=== PATIENT | male | born 1930 | race Two or more races ===

== ENCOUNTER 2017-02-23 11:40 | Emergency (ER) | payer MEDICARE, MEDICAID, OTHER ==
[~2017-02-23] VITALS: Ht 172.7 cm; Wt 111.1 kg
[~2017-02-23 11:40] MED LIST: ASPI-378 PO; CARV6.2551 PO; LEVO25TA6 PO; LISI2.5T47 PO; METF-370 PO
[2017-02-23 12:36] LABS: Basophils # (auto) 0 uL; Basophils % (auto) 0.5 % (0.0-2.0); CONDITION Y; Eosinophils # (auto) 0.3 uL; Eosinophils % (auto) 3.1 % (0.0-7.0); Hematocrit 43.6 % (41.0-53.0); Hemoglobin 15.1 g/dL (13.5-17.5); Lymphocytes # (auto) 2.5 uL; Lymphocytes % (auto) 30.5 % (10.0-50.0); Mean Corpuscular Hemoglobin 30.6 pg (28.0-32.0); Mean Corpuscular Hgb Conc. 34.6 g/dL (32.0-36.0); Mean Corpuscular Volume 88.3 fL (80.0-100.0); Mean Platelet Volume 8.3 fL (7.4-10.4); Monocytes # (auto) 0.7 uL; Monocytes % (auto) 8.6 % (0.0-12.0); Neutrophils # (auto) 4.8 uL; Neutrophils % (auto) 57.3 % (37.0-80.0); Platelet Count (auto) 259 10^3/uL (140-450); Red Cell Distribution Width 13.2 % (11.6-16.0); White Blood Cell 8.3 10^3/uL (4.4-10.8)
[2017-02-23 13:05] LABS: INR 1.1 (0.9-1.15); Partial Thromboplastin Time 26.6 sec (22.64-33.71)
[2017-02-23 13:09] LABS: Albumin 3.8 g/dL (3.4-5.0); BUN/Creatinine Ratio 19.5; Bilirubin, Total 0.5 mg/dL (0.2-1.0); Calcium 9.1 mg/dL (8.5-10.1); Potassium 4.6 mmol/L (3.5-5.1); Total Protein 7.5 g/dL (6.4-8.2)
[2017-02-23] MEDS ORDERED: PROMETHAZINE HCL 25 MG/ML 1ML IV ONE (16:00)
[2017-02-23] MEDS ORDERED: KETOROLAC TROMETH 30 MG/ML 1ML VIAL IV ONE (16:00)
[2017-02-23] MEDS ORDERED: DEXAMETHASONE SOD PHOS 4 MG/1ML SDV INJ IV ONE (17:30)
[2017-02-23 21:00] VITALS: BP 120/55
== END 2017-02-23 21:27 | disposition home or self-care (01) ==
LOC: ER 11:40
DX: M54.9 Dorsalgia, unspecified (principal); M21.42 Flat foot [pes planus] (acquired), left foot; M21.41 Flat foot [pes planus] (acquired), right foot; E66.9 Obesity, unspecified; Z68.37 Body mass index [BMI] 37.0-37.9, adult; Z86.73 Personal history of transient ischemic attack (TIA), and cerebral infarction without residual deficits; J44.9 Chronic obstructive pulmonary disease, unspecified; I25.10 Atherosclerotic heart disease of native coronary artery without angina pectoris; I10 Essential (primary) hypertension; E11.9 Type 2 diabetes mellitus without complications; G89.29 Other chronic pain; N40.0 Benign prostatic hyperplasia without lower urinary tract symptoms; Z79.82 Long term (current) use of aspirin
CPT/HCPCS: 36415; 72131; 80053; 81002; 82962; 83735; 84443; 85025; 85379; 85610; 85730; 93970; 96374; 96375; 99285; J1100; J1885; J2550

== ENCOUNTER 2021-09-13 10:50 | Inpatient (IN) | payer MEDICARE, MEDICAID ==
[~2021-09-13] VITALS: Ht 175.3 cm; Wt 114.9 kg
[2021-09-13 12:28] LABS: Basophils # (auto) 0 10 ^3/uL (0-0.2); Basophils % (auto) 0.3 % (0.0-2.0); Eosinophils # (auto) 0 10 ^3/uL (0-0.8); Eosinophils % (auto) 0.2 % (0.0-7.0); Hematocrit 41.7 % (41.0-53.0); Hemoglobin 14.3 g/dL (13.5-17.5); Lymphocytes # (auto) 1.6 10 ^3/uL (0.4-5.4); Lymphocytes % (auto) 16.7 % (10.0-50.0); Mean Corpuscular Hemoglobin 30.3 pg (28.0-32.0); Mean Corpuscular Hgb Conc. 34.3 g/dL (32.0-36.0); Mean Corpuscular Volume 88.4 fL (80.0-100.0); Monocytes # (auto) 1.1 10 ^3/uL (0-1.3); Monocytes % (auto) 11.1 % (0.0-12.0); Neutrophils # (auto) 6.8 10 ^3/uL (1.6-8.6); Neutrophils % (auto) 71.7 % (37.0-80.0); Nucleated Red Blood Cells % 0.1 %; Red Blood Cells 4.72 10^6/uL (4.5-5.90); Red Cell Distribution Width 13.5 % (11.8-14.3); White Blood Cell 9.5 10^3/uL (4.4-10.8)
[2021-09-13] MEDS ORDERED: ONDANSETRON HCL 4 MG/2 ML VIAL IV ONE (12:45)
[2021-09-13 12:49] LABS: Potassium 4.4 mmol/L (3.5-5.1)
[2021-09-13 12:55] LABS: Albumin 3.4 g/dL (3.4-5.0); BUN/Creatinine Ratio 20.7; Bilirubin, Total 0.9 mg/dL (0.2-1.0); Calcium 8.5 mg/dL (8.5-10.1); Total Protein 6.9 g/dL (6.4-8.2)
[2021-09-13] MEDS ORDERED: GLIP5TAB12 PO (13:31)
[2021-09-13] MEDS ORDERED: ATOR10TA52 PO (13:31)
[2021-09-13] MEDS ORDERED: AML5T PO (13:31)
[2021-09-13] MEDS ORDERED: ALFU10TA33 PO (13:31)
[2021-09-13] MEDS ORDERED: FUROSEMIDE 40 MG/4 ML VIAL IV ONE (15:15)
[2021-09-13] MEDS ORDERED: SPIRONOLACTONE 25 MG TAB PO ONE (15:15)
[2021-09-13 15:35] LABS: Urine Bacteria FEW /hpf (None Seen); Urine Blood Negative /uL (Negative); Urine Mucus FEW (None Seen); Urine Specific Gravity 1.026 (1.001-1.035); Urine WBC 3 /hpf (0 - 3)
[2021-09-13] MEDS ORDERED: MORPHINE SULFATE INJECTION 2 MG/ML SYRG IV PRN ×2 (17:30→18:45)
[2021-09-13] MEDS ORDERED: NITROGLYCERIN 0.4 MG SL TAB SL PRN (17:30)
[2021-09-13] MEDS ORDERED: FOLIC ACID 1 MG TAB PO ONE (18:45)
[2021-09-13] MEDS ORDERED: methylPREDNISolone SOD SUCC 125 MG/2 ML VL IV ONE (18:45)
[2021-09-13] MEDS ORDERED: ALBUTEROL SULF 2.5 MG/0.5ML(0.5%) NEB SOLN NEB PRN (18:45)
[2021-09-13] MEDS ORDERED: MONTELUKAST SODIUM 10 MG TAB PO ONE (18:45)
[2021-09-13] MEDS ORDERED: LORazepam 0.5 MG TAB PO PRN (18:45)
[2021-09-13] MEDS ORDERED: ACETAMINOPHEN 325 MG TAB PO PRN (18:45)
[2021-09-13] MEDS ORDERED: LACTULOSE 20Gm/30ML SOLN PO PRN (18:45)
[2021-09-13] MEDS ORDERED: IPRATROPIUM BROM 0.5 MG/2.5ML INH SOL NEB ONE (18:45)
[2021-09-13] MEDS ORDERED: BUDESONIDE (INHALATION) 0.5 MG/2 ML NEB NEB ONE (18:45)
[2021-09-13] MEDS ORDERED: ALBUTEROL SULF 2.5 MG/0.5ML(0.5%) NEB SOLN NEB ONE (18:45)
[2021-09-13] MEDS ORDERED: cefTRIAXone 1GM/50ML D5W 50 ML IV ONE (18:45)
[2021-09-13] MEDS ORDERED: HYDROcodone-ACET 5/325MG TAB PO PRN (18:45)
[2021-09-13] MEDS ORDERED: hydrALAZINE HCL 20 MG/ML VL IV PRN (18:45)
[2021-09-13] MEDS ORDERED: ONDANSETRON HCL 4 MG/2 ML VIAL IV PRN (18:45)
[2021-09-13] MEDS ORDERED: PANTOPRAZOLE 40 MG/10 ML VIAL INJ IV ONE (18:45)
[2021-09-13] MEDS ORDERED: HYDROcodone-ACET 5/325MG TAB PO ONE (18:45)
[2021-09-13] MEDS ORDERED: AZITHROMYCIN 500MG/ 250ML 250 ML IV ONE (18:45)
[2021-09-13] MEDS ORDERED: DOCUSATE SOD 100 MG CAP PO PRN (18:45)
[2021-09-13] MEDS ORDERED: IPRATROPIUM BROM 0.5 MG/2.5ML INH SOL NEB PRN (19:00)
[2021-09-13] MEDS ORDERED: DEXTROSE (50%) 50ML SYRG IV PRN (19:00)
[2021-09-13 20:16] VITALS: BP 104/53
[2021-09-13] MEDS: methylPREDNISolone SOD SUCC 40 MG/ML VL IV SCH (20:45)
[2021-09-13 22:00] VITALS: BP 98/43
[2021-09-13] MEDS ORDERED: ATORVASTATIN 20 MG TAB PO SCH (22:00)
[2021-09-13] MEDS ORDERED: ACETYLCYSTEINE 10 %(100MG/ML) SOL 4ML NEB SCH (22:00)
[2021-09-13] MEDS ORDERED: IPRATROPIUM BROM 0.5 MG/2.5ML INH SOL NEB SCH (22:00)
[2021-09-13] MEDS: BUDESONIDE (INHALATION) 0.5 MG/2 ML NEB NEB SCH (22:31)
[2021-09-13] MEDS: CARVEDILOL 3.125 MG TAB PO SCH (23:14)
[2021-09-13] MEDS: POTASSIUM CHL 20 Meq TABLET PO SCH (23:14)
[2021-09-13] MEDS: ACCU-CHEK COMFORT CURVE STRIP VI SCH (23:17)
[2021-09-13] MEDS: SUCRALFATE 1 GM/10 ML ORAL SUSP PO SCH (23:17)
[2021-09-13] MEDS: InsuLIN REG 1unit/0.01ml Soln (100units/ml) SC SCH (23:26)
[2021-09-14 01:40] VITALS: BP 98/43
[2021-09-14 05:00] VITALS: BP 108/62
[2021-09-14] MEDS ORDERED: FUROSEMIDE 20 MG/2 ML VIAL IV SCH (06:00)
[2021-09-14 06:13] LABS: Basophils # (auto) 0 10 ^3/uL (0-0.2); Basophils % (auto) 0.1 % (0.0-2.0); Eosinophils # (auto) 0 10 ^3/uL (0-0.8); Hematocrit 40.1 % (41.0-53.0); Hemoglobin 13.7 g/dL (13.5-17.5); Lymphocytes # (auto) 0.7 10 ^3/uL (0.4-5.4); Lymphocytes % (auto) 10.1 % (10.0-50.0); Mean Corpuscular Hemoglobin 30.8 pg (28.0-32.0); Mean Corpuscular Hgb Conc. 34.2 g/dL (32.0-36.0); Monocytes # (auto) 0.1 10 ^3/uL (0-1.3); Monocytes % (auto) 1.2 % (0.0-12.0); Neutrophils # (auto) 6.1 10 ^3/uL (1.6-8.6); Neutrophils % (auto) 88.6 % (37.0-80.0); Nucleated Red Blood Cells % 0.1 %; Red Blood Cells 4.46 10^6/uL (4.5-5.90); Red Cell Distribution Width 13.7 % (11.8-14.3); White Blood Cell 6.8 10^3/uL (4.4-10.8)
[2021-09-14] MEDS: methylPREDNISolone SOD SUCC 40 MG/ML VL IV SCH ×2 (06:17→13:23)
[2021-09-14] MEDS: SUCRALFATE 1 GM/10 ML ORAL SUSP PO SCH ×2 (06:17→11:53)
[2021-09-14] MEDS: ACCU-CHEK COMFORT CURVE STRIP VI SCH ×4 (06:17→22:00)
[2021-09-14] MEDS: LEVOTHYROXINE SODIUM 25 MCG TAB PO SCH (06:17)
[2021-09-14] MEDS: InsuLIN REG 1unit/0.01ml Soln (100units/ml) SC SCH ×4 (06:25→22:33)
[2021-09-14 06:26] LABS: INR 1.27 (0.9-1.15); Partial Thromboplastin Time 28.5 sec (23.6-33.0)
[2021-09-14 06:30] LABS: Potassium 4.6 mmol/L (3.5-5.1)
[2021-09-14 06:42] LABS: Albumin 3.2 g/dL (3.4-5.0); BUN/Creatinine Ratio 25.9; CRP High Sensitivity 8.39 mg/dL (< 0.3); Calcium 8.4 mg/dL (8.5-10.1); Magnesium 3.2 mg/dL (1.6-2.6); Phosphorus 3.8 mg/dL (2.5-4.90); Uric Acid 6.2 mg/dL (3.5-7.2)
[2021-09-14 06:55] LABS: Thyroid Stimulating Hormone 0.64 uIU/mL (0.358-3.74)
[2021-09-14 08:53] VITALS: BP 95/57
[2021-09-14] MEDS: cefTRIAXone 1GM/50ML D5W 50 ML IV SCH (09:16)
[2021-09-14] MEDS: ASPirin 81 mg TAB PO SCH (09:17)
[2021-09-14] MEDS: CARVEDILOL 3.125 MG TAB PO SCH (09:19)
[2021-09-14] MEDS: POTASSIUM CHL 20 Meq TABLET PO SCH (09:20)
[2021-09-14] MEDS: ENOXAPARIN SOD 40 MG/0.4 ML SYRINGE SC SCH (09:22)
[2021-09-14] MEDS: BUDESONIDE (INHALATION) 0.5 MG/2 ML NEB NEB SCH ×2 (09:45→19:45)
[2021-09-14] MEDS ORDERED: CHOLECALCIFEROL (VITD3) 2,000 UNIT CAP/TAB PO SCH (10:00)
[2021-09-14] MEDS ORDERED: THIAMINE HCL 100 MG TAB PO SCH (10:00)
[2021-09-14] MEDS ORDERED: BENAZEPRIL HCL 10 MG TAB PO SCH (10:00)
[2021-09-14] MEDS ORDERED: FOLIC ACID 1 MG TAB PO SCH (10:00)
[2021-09-14] MEDS ORDERED: PANTOPRAZOLE 40 MG/10 ML VIAL INJ IV SCH (10:00)
[2021-09-14] MEDS ORDERED: CYANOCOBALAMIN 500 MCG TAB PO SCH (10:00)
[2021-09-14] MEDS: AZITHROMYCIN 500MG/ 250ML 250 ML IV SCH (11:52)
[2021-09-14 13:00] VITALS: BP 97/58
[2021-09-14 17:00] VITALS: BP 114/67
[2021-09-14] MEDS: TAMSULOSIN HYDROCHLORIDE 0.4 MG CAP PO SCH (18:37)
[2021-09-14] MEDS: ACETYLCYSTEINE 10 %(100MG/ML) SOL 4ML NEB SCH (19:25)
[2021-09-14] MEDS: ALBUTEROL SULF 2.5 MG/0.5ML(0.5%) NEB SOLN NEB SCH (19:45)
[2021-09-14] MEDS: IPRATROPIUM BROM 0.5 MG/2.5ML INH SOL NEB SCH (19:45)
[2021-09-14 21:30] VITALS: BP 126/61
[2021-09-14] MEDS ORDERED: MONTELUKAST SODIUM 10 MG TAB PO SCH (22:00)
[2021-09-15] MEDS: ALBUTEROL SULF 2.5 MG/0.5ML(0.5%) NEB SOLN NEB SCH ×5 (00:40→23:42)
[2021-09-15] MEDS: IPRATROPIUM BROM 0.5 MG/2.5ML INH SOL NEB SCH ×5 (00:40→23:42)
[2021-09-15] MEDS: ACETYLCYSTEINE 10 %(100MG/ML) SOL 4ML NEB SCH ×5 (02:45→23:42)
[2021-09-15 05:00] VITALS: BP 123/68
[2021-09-15] MEDS: FUROSEMIDE 20 MG/2 ML VIAL IV SCH ×2 (05:01→17:44)
[2021-09-15 06:25] LABS: Potassium 4.6 mmol/L (3.5-5.1)
[2021-09-15 06:40] LABS: BUN/Creatinine Ratio 35.4; Calcium 8.8 mg/dL (8.5-10.1)
[2021-09-15] MEDS: InsuLIN REG 1unit/0.01ml Soln (100units/ml) SC SCH ×4 (06:51→21:32)
[2021-09-15] MEDS: LEVOTHYROXINE SODIUM 25 MCG TAB PO SCH (06:52)
[2021-09-15] MEDS: ACCU-CHEK COMFORT CURVE STRIP VI SCH ×4 (06:52→21:24)
[2021-09-15 09:00] VITALS: BP 137/71
[2021-09-15] MEDS: cefTRIAXone 1GM/50ML D5W 50 ML IV SCH (09:30)
[2021-09-15] MEDS: PANTOPRAZOLE 40 MG TAB PO SCH (10:00)
[2021-09-15] MEDS: ENOXAPARIN SOD 40 MG/0.4 ML SYRINGE SC SCH (10:00)
[2021-09-15] MEDS: BUDESONIDE (INHALATION) 0.5 MG/2 ML NEB NEB SCH ×2 (10:00→18:41)
[2021-09-15] MEDS: ASPirin 81 mg TAB PO SCH (10:00)
[2021-09-15] MEDS: AZITHROMYCIN 500MG/ 250ML 250 ML IV SCH (10:44)
[2021-09-15 13:00] VITALS: BP 121/51
[2021-09-15] MEDS ORDERED: LACTULOSE 20Gm/30ML SOLN PO ONE (14:30)
[2021-09-15 17:00] VITALS: BP 127/61
[2021-09-15] MEDS: TAMSULOSIN HYDROCHLORIDE 0.4 MG CAP PO SCH (17:57)
[2021-09-15] MEDS: CARVEDILOL 3.125 MG TAB PO SCH (21:23)
[2021-09-15 22:00] VITALS: BP 109/58
[2021-09-16 05:00] VITALS: BP 121/64
[2021-09-16] MEDS: ALBUTEROL SULF 2.5 MG/0.5ML(0.5%) NEB SOLN NEB SCH ×3 (05:38→18:29)
[2021-09-16] MEDS: IPRATROPIUM BROM 0.5 MG/2.5ML INH SOL NEB SCH ×3 (05:38→18:29)
[2021-09-16] MEDS: BUDESONIDE (INHALATION) 0.5 MG/2 ML NEB NEB SCH ×2 (05:38→18:30)
[2021-09-16] MEDS: ACETYLCYSTEINE 10 %(100MG/ML) SOL 4ML NEB SCH ×3 (05:39→18:29)
[2021-09-16 05:48] LABS: BUN/Creatinine Ratio 40.2; Calcium 8.7 mg/dL (8.5-10.1); Potassium 4.1 mmol/L (3.5-5.1)
[2021-09-16] MEDS: ACCU-CHEK COMFORT CURVE STRIP VI SCH ×4 (06:01→22:46)
[2021-09-16] MEDS: LEVOTHYROXINE SODIUM 25 MCG TAB PO SCH (06:02)
[2021-09-16] MEDS: InsuLIN REG 1unit/0.01ml Soln (100units/ml) SC SCH ×4 (06:02→22:57)
[2021-09-16] MEDS: FUROSEMIDE 20 MG/2 ML VIAL IV SCH ×2 (06:02→18:05)
[2021-09-16 08:50] VITALS: BP 105/68
[2021-09-16] MEDS: CARVEDILOL 3.125 MG TAB PO SCH ×2 (09:10→22:46)
[2021-09-16] MEDS: LACTULOSE 20Gm/30ML SOLN PO SCH (09:10)
[2021-09-16] MEDS: PANTOPRAZOLE 40 MG TAB PO SCH (09:11)
[2021-09-16] MEDS: LISINOPRIL 5 MG TAB PO SCH (09:11)
[2021-09-16] MEDS: ENOXAPARIN SOD 40 MG/0.4 ML SYRINGE SC SCH (09:17)
[2021-09-16] MEDS: ASPirin 81 mg TAB PO SCH (09:18)
[2021-09-16] MEDS: cefTRIAXone 1GM/50ML D5W 50 ML IV SCH (10:30)
[2021-09-16] MEDS: AZITHROMYCIN 500MG/ 250ML 250 ML IV SCH (11:50)
[2021-09-16 13:00] VITALS: BP 103/65
[2021-09-16 17:00] VITALS: BP 103/62
[2021-09-16] MEDS: TAMSULOSIN HYDROCHLORIDE 0.4 MG CAP PO SCH (18:06)
[2021-09-16 22:00] VITALS: BP 97/58
[2021-09-16 23:37] VITALS: BP 97/58
[2021-09-17] MEDS: ACETYLCYSTEINE 10 %(100MG/ML) SOL 4ML NEB SCH ×5 (00:11→18:06)
[2021-09-17] MEDS: IPRATROPIUM BROM 0.5 MG/2.5ML INH SOL NEB SCH ×5 (01:15→18:06)
[2021-09-17] MEDS: ALBUTEROL SULF 2.5 MG/0.5ML(0.5%) NEB SOLN NEB SCH ×5 (01:15→18:06)
[2021-09-17 05:00] VITALS: BP 101/68
[2021-09-17] MEDS: FUROSEMIDE 20 MG/2 ML VIAL IV SCH ×2 (05:58→17:56)
[2021-09-17] MEDS: BUDESONIDE (INHALATION) 0.5 MG/2 ML NEB NEB SCH ×2 (06:02→18:06)
[2021-09-17 06:04] LABS: Calcium 8.5 mg/dL (8.5-10.1); Magnesium 2.6 mg/dL (1.6-2.6)
[2021-09-17 06:06] LABS: BUN/Creatinine Ratio 37.5
[2021-09-17] MEDS: InsuLIN REG 1unit/0.01ml Soln (100units/ml) SC SCH ×4 (06:06→22:07)
[2021-09-17] MEDS: LEVOTHYROXINE SODIUM 25 MCG TAB PO SCH (06:06)
[2021-09-17] MEDS: ACCU-CHEK COMFORT CURVE STRIP VI SCH ×4 (06:06→21:48)
[2021-09-17 09:00] VITALS: BP 108/64
[2021-09-17] MEDS: cefTRIAXone 1GM/50ML D5W 50 ML IV SCH (09:00)
[2021-09-17] MEDS: CARVEDILOL 3.125 MG TAB PO SCH ×3 (09:59→21:48)
[2021-09-17] MEDS: ASPirin 81 mg TAB PO SCH (09:59)
[2021-09-17] MEDS: PANTOPRAZOLE 40 MG TAB PO SCH (09:59)
[2021-09-17] MEDS: LISINOPRIL 5 MG TAB PO SCH (10:00)
[2021-09-17] MEDS: ENOXAPARIN SOD 40 MG/0.4 ML SYRINGE SC SCH (10:00)
[2021-09-17] MEDS: LACTULOSE 20Gm/30ML SOLN PO SCH (10:00)
[2021-09-17] MEDS: AZITHROMYCIN 500MG/ 250ML 250 ML IV SCH (10:07)
[2021-09-17 13:00] VITALS: BP 92/46
[2021-09-17 16:58] VITALS: BP 106/62
[2021-09-17] MEDS: TAMSULOSIN HYDROCHLORIDE 0.4 MG CAP PO SCH (18:16)
[2021-09-17 22:00] VITALS: BP 120/65
[2021-09-18] MEDS: ALBUTEROL SULF 2.5 MG/0.5ML(0.5%) NEB SOLN NEB SCH ×4 (00:13→18:17)
[2021-09-18] MEDS: IPRATROPIUM BROM 0.5 MG/2.5ML INH SOL NEB SCH ×4 (00:14→18:17)
[2021-09-18] MEDS: ACETYLCYSTEINE 10 %(100MG/ML) SOL 4ML NEB SCH ×4 (00:14→18:18)
[2021-09-18 05:00] VITALS: BP 115/62
[2021-09-18] MEDS: ACCU-CHEK COMFORT CURVE STRIP VI SCH ×4 (06:01→22:38)
[2021-09-18] MEDS: LEVOTHYROXINE SODIUM 25 MCG TAB PO SCH (06:01)
[2021-09-18] MEDS: FUROSEMIDE 20 MG/2 ML VIAL IV SCH ×2 (06:02→17:37)
[2021-09-18] MEDS: InsuLIN REG 1unit/0.01ml Soln (100units/ml) SC SCH ×4 (06:04→22:39)
[2021-09-18] MEDS: BUDESONIDE (INHALATION) 0.5 MG/2 ML NEB NEB SCH ×2 (08:22→18:17)
[2021-09-18] MEDS: CARVEDILOL 3.125 MG TAB PO SCH ×2 (08:42→22:00)
[2021-09-18] MEDS: LISINOPRIL 5 MG TAB PO SCH (08:42)
[2021-09-18 09:00] VITALS: BP 93/63
[2021-09-18] MEDS: LACTULOSE 20Gm/30ML SOLN PO SCH (10:00)
[2021-09-18] MEDS: PANTOPRAZOLE 40 MG TAB PO SCH (10:09)
[2021-09-18] MEDS: ENOXAPARIN SOD 40 MG/0.4 ML SYRINGE SC SCH (10:09)
[2021-09-18] MEDS: ASPirin 81 mg TAB PO SCH (10:09)
[2021-09-18] MEDS: cefTRIAXone 1GM/50ML D5W 50 ML IV SCH (10:09)
[2021-09-18] MEDS ORDERED: AMLO-483 PO (10:19)
[2021-09-18] MEDS: AZITHROMYCIN 500MG/ 250ML 250 ML IV SCH (10:47)
[2021-09-18 13:00] VITALS: BP 128/64
[2021-09-18 16:47] VITALS: BP_SYST 126; BP_DIAS 7; BP_DIAS 77
[2021-09-18] MEDS: TAMSULOSIN HYDROCHLORIDE 0.4 MG CAP PO SCH (17:53)
[2021-09-18 22:00] VITALS: BP 100/67
[2021-09-18] MEDS: APIXABAN 2.5 MG TAB PO SCH (22:37)
[2021-09-19] MEDS: ACETYLCYSTEINE 10 %(100MG/ML) SOL 4ML NEB SCH ×4 (02:45→18:58)
[2021-09-19 05:00] VITALS: BP 122/71
[2021-09-19 05:29] LABS: Basophils # (auto) 0 10 ^3/uL (0-0.2); Basophils % (auto) 0.5 % (0.0-2.0); Eosinophils # (auto) 0.3 10 ^3/uL (0-0.8); Hematocrit 39.7 % (41.0-53.0); Hemoglobin 13.9 g/dL (13.5-17.5); Lymphocytes # (auto) 2.2 10 ^3/uL (0.4-5.4); Lymphocytes % (auto) 28.8 % (10.0-50.0); Mean Corpuscular Hemoglobin 30.9 pg (28.0-32.0); Mean Corpuscular Hgb Conc. 35.1 g/dL (32.0-36.0); Monocytes % (auto) 12.4 % (0.0-12.0); Neutrophils # (auto) 4.2 10 ^3/uL (1.6-8.6); Neutrophils % (auto) 54.3 % (37.0-80.0); Nucleated Red Blood Cells % 0.2 %; Red Blood Cells 4.51 10^6/uL (4.5-5.90); White Blood Cell 7.7 10^3/uL (4.4-10.8)
[2021-09-19 05:40] LABS: Calcium 8.8 mg/dL (8.5-10.1)
[2021-09-19 05:42] LABS: BUN/Creatinine Ratio 30.6
[2021-09-19] MEDS: ALBUTEROL SULF 2.5 MG/0.5ML(0.5%) NEB SOLN NEB SCH ×4 (05:58→18:58)
[2021-09-19] MEDS: BUDESONIDE (INHALATION) 0.5 MG/2 ML NEB NEB SCH ×2 (05:58→18:58)
[2021-09-19] MEDS: IPRATROPIUM BROM 0.5 MG/2.5ML INH SOL NEB SCH ×5 (05:58→22:01)
[2021-09-19] MEDS: LEVOTHYROXINE SODIUM 25 MCG TAB PO SCH (06:41)
[2021-09-19] MEDS: FUROSEMIDE 20 MG/2 ML VIAL IV SCH ×2 (06:42→17:46)
[2021-09-19] MEDS: ACCU-CHEK COMFORT CURVE STRIP VI SCH ×4 (06:42→22:12)
[2021-09-19] MEDS: InsuLIN REG 1unit/0.01ml Soln (100units/ml) SC SCH ×4 (06:42→22:05)
[2021-09-19 08:00] VITALS: BP 104/59
[2021-09-19] MEDS: CARVEDILOL 3.125 MG TAB PO SCH ×2 (08:15→22:00)
[2021-09-19] MEDS: LISINOPRIL 5 MG TAB PO SCH (08:16)
[2021-09-19] MEDS: cefTRIAXone 1GM/50ML D5W 50 ML IV SCH (08:34)
[2021-09-19] MEDS: PANTOPRAZOLE 40 MG TAB PO SCH (08:34)
[2021-09-19] MEDS: ASPirin 81 mg TAB PO SCH (08:34)
[2021-09-19] MEDS: APIXABAN 2.5 MG TAB PO SCH ×2 (08:34→22:01)
[2021-09-19 12:00] VITALS: BP 112/67
[2021-09-19] MEDS ORDERED: LACTULOSE 20Gm/30ML SOLN PO ONE (15:45)
[2021-09-19 16:00] VITALS: BP 117/67
[2021-09-19] MEDS: TAMSULOSIN HYDROCHLORIDE 0.4 MG CAP PO SCH (17:46)
[2021-09-19 22:00] VITALS: BP 105/60
[2021-09-20 02:26] VITALS: BP 105/60
[2021-09-20 05:00] VITALS: BP 106/73
[2021-09-20] MEDS: IPRATROPIUM BROM 0.5 MG/2.5ML INH SOL NEB SCH ×3 (05:27→11:28)
[2021-09-20] MEDS: ALBUTEROL SULF 2.5 MG/0.5ML(0.5%) NEB SOLN NEB SCH ×3 (05:27→11:28)
[2021-09-20] MEDS: ACETYLCYSTEINE 10 %(100MG/ML) SOL 4ML NEB SCH ×3 (05:27→11:28)
[2021-09-20] MEDS: BUDESONIDE (INHALATION) 0.5 MG/2 ML NEB NEB SCH (05:27)
[2021-09-20] MEDS: FUROSEMIDE 20 MG/2 ML VIAL IV SCH (06:00)
[2021-09-20] MEDS: ACCU-CHEK COMFORT CURVE STRIP VI SCH ×2 (06:54→11:30)
[2021-09-20] MEDS: LEVOTHYROXINE SODIUM 25 MCG TAB PO SCH (06:54)
[2021-09-20] MEDS: InsuLIN REG 1unit/0.01ml Soln (100units/ml) SC SCH ×2 (06:55→11:30)
[2021-09-20 09:00] VITALS: BP 137/74
[2021-09-20] MEDS: cefTRIAXone 1GM/50ML D5W 50 ML IV SCH (09:00)
[2021-09-20] MEDS ORDERED: TAM04C PO (10:00)
[2021-09-20] MEDS: PANTOPRAZOLE 40 MG TAB PO SCH (10:00)
[2021-09-20] MEDS: ASPirin 81 mg TAB PO SCH (10:00)
[2021-09-20] MEDS: LISINOPRIL 5 MG TAB PO SCH (10:00)
[2021-09-20] MEDS ORDERED: FURO40TA4 PO (10:00)
[2021-09-20] MEDS: CARVEDILOL 3.125 MG TAB PO SCH (10:00)
[2021-09-20] MEDS ORDERED: LACTULOSE 20Gm/30ML SOLN PO ONE (10:00)
[2021-09-20] MEDS ORDERED: APIX2.5T PO (10:00)
[2021-09-20] MEDS: APIXABAN 2.5 MG TAB PO SCH (10:15)
[2021-09-20 12:23] VITALS: BP 132/68
[2021-09-20 13:00] VITALS: BP 130/59
== END 2021-09-20 13:50 | disposition home health service (06) | DRG 139 ==
LOC: ER 10:50 → TELE 17:18 → TELE-EAST 21:38
PROVIDERS: ADMIT Hospitalist; ATTEND Internal Medicine
DX: J18.9 Pneumonia, unspecified organism (principal); J96.20 Acute and chronic respiratory failure, unspecified whether with hypoxia or hypercapnia; I50.43 Acute on chronic combined systolic (congestive) and diastolic (congestive) heart failure; N17.9 Acute kidney failure, unspecified; D68.69 Other thrombophilia; I27.9 Pulmonary heart disease, unspecified; J44.0 Chronic obstructive pulmonary disease with (acute) lower respiratory infection; I13.0 Hypertensive heart and chronic kidney disease with heart failure and stage 1 through stage 4 chronic kidney disease, or unspecified chronic kidney disease; I48.0 Paroxysmal atrial fibrillation; J44.1 Chronic obstructive pulmonary disease with (acute) exacerbation; Z20.822 Contact with and (suspected) exposure to COVID-19; I25.10 Atherosclerotic heart disease of native coronary artery without angina pectoris; N40.0 Benign prostatic hyperplasia without lower urinary tract symptoms; E66.9 Obesity, unspecified; I25.5 Ischemic cardiomyopathy; K59.00 Constipation, unspecified; I35.0 Nonrheumatic aortic (valve) stenosis; E03.9 Hypothyroidism, unspecified; N18.2 Chronic kidney disease, stage 2 (mild); E11.22 Type 2 diabetes mellitus with diabetic chronic kidney disease; Z86.73 Personal history of transient ischemic attack (TIA), and cerebral infarction without residual deficits; Z79.84 Long term (current) use of oral hypoglycemic drugs; Z68.37 Body mass index [BMI] 37.0-37.9, adult
CPT/HCPCS: 36415; 36600; 71045; 71046; 71250; 76604; 80048; 80053; 80061; 81001; 82728; 82805; 82962; 83036; 83615; 83690; 83735; 83880; 84100; 84443; 84484; 84550; 85025; 85379; 85610; 85652; 85730; 86141; 87040; 87086; 93005; 93306; 93970; 94640; 96365; 96367; 96375; 97163; C9113; G0378; J0696; J1815; J2405

== ENCOUNTER 2021-10-28 15:08 | Inpatient (IN) | payer MEDICARE, MEDICAID ==
[~2021-10-28] VITALS: Ht 175.3 cm; Wt 110.6 kg
[~2021-10-28 15:08] MED LIST changes: +AMLO-483 PO; +APIX2.5T PO; -ASPI-378 PO; +ATOR10TA52 PO; +FURO40TA4 PO; +GLIP5TAB12 PO; -METF-370 PO; +TAM04C PO
[2021-10-28 17:05] LABS: Basophils # (auto) 0 10 ^3/uL (0-0.2); Basophils % (auto) 0.4 % (0.0-2.0); Eosinophils # (auto) 0.1 10 ^3/uL (0-0.8); Eosinophils % (auto) 1.4 % (0.0-7.0); Hematocrit 37.6 % (41.0-53.0); Lymphocytes # (auto) 2.5 10 ^3/uL (0.4-5.4); Lymphocytes % (auto) 28.3 % (10.0-50.0); Mean Corpuscular Hemoglobin 30.6 pg (28.0-32.0); Mean Corpuscular Hgb Conc. 34.5 g/dL (32.0-36.0); Mean Corpuscular Volume 88.6 fL (80.0-100.0); Monocytes # (auto) 0.8 10 ^3/uL (0-1.3); Monocytes % (auto) 9.5 % (0.0-12.0); Neutrophils # (auto) 5.4 10 ^3/uL (1.6-8.6); Neutrophils % (auto) 60.4 % (37.0-80.0); Nucleated Red Blood Cells % 0.1 %; Red Blood Cells 4.25 10^6/uL (4.5-5.90); Red Cell Distribution Width 13.5 % (11.8-14.3); White Blood Cell 8.9 10^3/uL (4.4-10.8)
[2021-10-28 17:28] LABS: Albumin 3.3 g/dL (3.4-5.0); Calcium 8.8 mg/dL (8.5-10.1); Potassium 3.9 mmol/L (3.5-5.1)
[2021-10-28 17:31] LABS: BUN/Creatinine Ratio 24.8; Bilirubin, Total 0.6 mg/dL (0.2-1.0)
[2021-10-28] MEDS ORDERED: FUROSEMIDE 40 MG/4 ML VIAL IV ONE (18:15)
[2021-10-28] MEDS ORDERED: ACETAMINOPHEN 325 MG TAB PO PRN (21:00)
[2021-10-28] MEDS ORDERED: DOCUSATE SOD 100 MG CAP PO PRN (21:00)
[2021-10-28] MEDS ORDERED: HYDROcodone-ACET 5/325MG TAB PO PRN (21:00)
[2021-10-28] MEDS ORDERED: AZITHROMYCIN 500MG/ 250ML 250 ML IV ONE (21:00)
[2021-10-28] MEDS ORDERED: DEXTROSE (50%) 50ML SYRG IV PRN (21:00)
[2021-10-28] MEDS ORDERED: ONDANSETRON HCL 4 MG/2 ML VIAL IV PRN (21:00)
[2021-10-28] MEDS ORDERED: NITROGLYCERIN 0.4 MG SL TAB SL PRN (21:45)
[2021-10-28] MEDS ORDERED: MORPHINE SULFATE INJECTION 2 MG/ML SYRG IV PRN (21:45)
[2021-10-28] MEDS: InsuLIN REG 1unit/0.01ml Soln (100units/ml) SC SCH (23:07)
[2021-10-28] MEDS: ACCU-CHEK COMFORT CURVE STRIP VI SCH (23:07)
[2021-10-28] MEDS: CARVEDILOL 3.125 MG TAB PO SCH (23:07)
[2021-10-28 23:43] VITALS: BP 108/64
[2021-10-28 23:45] VITALS: BP 108/64
[2021-10-29 05:00] VITALS: BP 102/48
[2021-10-29 05:28] LABS: Basophils # (auto) 0.1 10 ^3/uL (0-0.2); Basophils % (auto) 0.7 % (0.0-2.0); Eosinophils # (auto) 0.1 10 ^3/uL (0-0.8); Eosinophils % (auto) 1.3 % (0.0-7.0); Hematocrit 37.1 % (41.0-53.0); Lymphocytes # (auto) 2.1 10 ^3/uL (0.4-5.4); Lymphocytes % (auto) 26.4 % (10.0-50.0); Mean Corpuscular Hgb Conc. 35.1 g/dL (32.0-36.0); Mean Corpuscular Volume 88.3 fL (80.0-100.0); Monocytes # (auto) 0.8 10 ^3/uL (0-1.3); Monocytes % (auto) 10.4 % (0.0-12.0); Neutrophils # (auto) 4.8 10 ^3/uL (1.6-8.6); Neutrophils % (auto) 61.2 % (37.0-80.0); Red Cell Distribution Width 13.3 % (11.8-14.3); White Blood Cell 7.8 10^3/uL (4.4-10.8)
[2021-10-29 05:45] LABS: Albumin 3.2 g/dL (3.4-5.0); Calcium 8.8 mg/dL (8.5-10.1); Potassium 3.8 mmol/L (3.5-5.1)
[2021-10-29 05:50] LABS: BUN/Creatinine Ratio 25.5; Bilirubin, Total 0.8 mg/dL (0.2-1.0); Total Protein 6.9 g/dL (6.4-8.2)
[2021-10-29] MEDS: LEVOTHYROXINE SODIUM 25 MCG TAB PO SCH (06:01)
[2021-10-29] MEDS: InsuLIN REG 1unit/0.01ml Soln (100units/ml) SC SCH ×4 (06:19→22:10)
[2021-10-29] MEDS: ACCU-CHEK COMFORT CURVE STRIP VI SCH ×4 (06:20→22:09)
[2021-10-29 09:00] VITALS: BP 105/61
[2021-10-29] MEDS ORDERED: FUROSEMIDE 20 MG/2 ML VIAL IV SCH (10:00)
[2021-10-29] MEDS: CARVEDILOL 3.125 MG TAB PO SCH ×2 (10:00→22:12)
[2021-10-29] MEDS: AZITHROMYCIN 500MG/ 250ML 250 ML IV SCH (10:06)
[2021-10-29] MEDS: ASPirin 81 mg TAB PO SCH (10:06)
[2021-10-29 13:00] VITALS: BP 105/57
[2021-10-29] MEDS ORDERED: FUROSEMIDE 20 MG/2 ML VIAL IV ONE (13:00)
[2021-10-29 17:00] VITALS: BP 132/60
[2021-10-29] MEDS: FUROSEMIDE 40 MG/4 ML VIAL IV SCH (17:56)
[2021-10-29] MEDS ORDERED: TAMSULOSIN HYDROCHLORIDE 0.4 MG CAP PO SCH (18:00)
[2021-10-29] MEDS ORDERED: LACTULOSE 20Gm/30ML SOLN PO ONE (19:00)
[2021-10-29 22:00] VITALS: BP 105/82
[2021-10-30 05:00] VITALS: BP 110/54
[2021-10-30] MEDS: InsuLIN REG 1unit/0.01ml Soln (100units/ml) SC SCH ×2 (06:47→12:26)
[2021-10-30] MEDS: ACCU-CHEK COMFORT CURVE STRIP VI SCH ×2 (06:47→11:54)
[2021-10-30] MEDS: LEVOTHYROXINE SODIUM 25 MCG TAB PO SCH (06:47)
[2021-10-30] MEDS: FUROSEMIDE 40 MG/4 ML VIAL IV SCH (06:47)
[2021-10-30 08:00] VITALS: BP 108/58
[2021-10-30 09:00] VITALS: BP 108/58
[2021-10-30] MEDS: AZITHROMYCIN 500MG/ 250ML 250 ML IV SCH (11:52)
[2021-10-30] MEDS: ASPirin 81 mg TAB PO SCH (11:52)
[2021-10-30] MEDS: CARVEDILOL 3.125 MG TAB PO SCH (11:53)
[2021-10-30 14:21] VITALS: BP 96/47
== END 2021-10-30 15:14 | disposition home or self-care (01) | DRG 194 ==
LOC: ER 15:08 → TELE 21:39 → TELE-CENTR 23:09
PROVIDERS: ADMIT Nurse Practitioner Family; ATTEND Family Medicine
DX: I11.0 Hypertensive heart disease with heart failure (principal); J96.21 Acute and chronic respiratory failure with hypoxia; E11.21 Type 2 diabetes mellitus with diabetic nephropathy; I50.43 Acute on chronic combined systolic (congestive) and diastolic (congestive) heart failure; E11.40 Type 2 diabetes mellitus with diabetic neuropathy, unspecified; I48.91 Unspecified atrial fibrillation; E03.9 Hypothyroidism, unspecified; I25.10 Atherosclerotic heart disease of native coronary artery without angina pectoris; J44.1 Chronic obstructive pulmonary disease with (acute) exacerbation; N28.9 Disorder of kidney and ureter, unspecified; N40.0 Benign prostatic hyperplasia without lower urinary tract symptoms; Z82.49 Family history of ischemic heart disease and other diseases of the circulatory system; Z86.73 Personal history of transient ischemic attack (TIA), and cerebral infarction without residual deficits; Z20.822 Contact with and (suspected) exposure to COVID-19; Z79.84 Long term (current) use of oral hypoglycemic drugs
CPT/HCPCS: 36415; 71045; 80053; 82962; 83036; 83880; 84443; 84484; 85025; 85379; 93005; 96365; 96375; 99291; G0378; J1815